=== PATIENT | female | born 1965 | race Caucasian/White ===

== ENCOUNTER 2018-02-26 15:24 | Emergency (ER) | payer OTHER ==
[2018-02-26] MEDS ORDERED: Acetaminophen 500 MG TAB ONE (16:04)
[2018-02-26] MEDS ORDERED: Ibuprofen 800 MG TAB ONE (16:41)
== END 2018-02-26 17:12 | disposition home or self-care (01) ==
LOC: ERS 15:24
DX: J02.0 Streptococcal pharyngitis (principal); F17.210 Nicotine dependence, cigarettes, uncomplicated
CPT/HCPCS: 87430; 99283